=== PATIENT | male | born 1950 | race Caucasian/White ===

== ENCOUNTER 2022-06-13 17:13 | Observation (INO) | payer MEDICARE, OTHER, SELFPAY ==
[2022-06-13] VITALS (13 sets, daily range): BP systolic 102–160; BP diastolic 62–100; PULSE 59–98; RESP 11–26; TEMP 36.2–36.9; O2SAT 91–100; BMI 31.6
--- NOTE | 2022-06-13 17:44 | DI.RAD.S_ITS ---
PROCEDURE: XR FINGER LT MIN 2V INDICATIONS: Distal amputation left index finger TECHNIQUE: AP hand, 2 views of the index finger(s) acquired. COMPARISON: None. FINDINGS: Bones: Prior amputation of the 3rd digit at the level of the proximal aspect of the proximal phalanx. Acute comminuted fracture of the 2nd digit distal phalanx with associated soft tissue injury. A fragment or fragments of the distal phalanx/tuft may be absent. No definite extension of the fracture plane to the DIP joint is identified but this is difficult to exclude. Soft tissues: No suspicious soft tissue calcifications. IMPRESSION: Acute comminuted fracture of the 2nd digit distal phalanx involving the tuft. Dictated by: Zack Wright M.D. on 06/13/2022 at 20:06 Approved by: Zack Wright M.D. on 06/13/2022 at 20:09
[2022-06-13] MEDS: TET,DIPH,PERTUSS(ACELL),VAC/PF 0.5 ML SYRINGE IM (17:57)
[2022-06-13] MEDS: HYDROMORPHONE 0.5 MG INJ IV ×2 (18:05→18:46)
[2022-06-13] MEDS: CEFAZOLIN VIAL 2 GM in SODIUM CHLORIDE 0.9% 100 ML IV (18:10)
--- NOTE | 2022-06-13 18:11 | ED.GENADULT ---
HPI - General Adult General Chief complaint: Extremity Injury, Upper Stated complaint: cut/smashed left hand/finger Time Seen by Provider: 06/13/22 17:44 History of Present Illness HPI narrative: 71-year-old gentleman who rarely sees physicians has no significant medical history on no medications presents approximately 2 hours after injuring his left index finger with a band saw. Was in significant pain and there is a moderate amount of bleeding initially that has since been controlled. The DIP joint is fully exposed and the distal phalanx has been significantly injured with the band soft. There is a long laceration on the radial side that starts at approximately the 1st PIP joint and wraps around the tip of the finger through the pad. The pad does still seem to be moderate a vascularized. He has no allergies, last meal was at noon. He has no recent complaints of fever, cough, chills, vomiting, abdominal pain, chest pain, palpitations. With initial presentation and self described pain at 9/10 he was mildly diaphoretic that has improved after appropriate pain control. Related Data Previous Rx's Medication Instructions Recorded cephalexin 500 mg capsule 500 mg PO QID #40 caps 06/13/22 oxycodone-acetaminophen 5 mg-325 1 tab PO Q6H PRN pain #30 tabs 06/13/22 mg tablet Allergies Allergy/AdvReac Type Severity Reaction Status Date / Time INGREDIENT: NKDA - NO KNOWN Allergy Unknown Uncoded 01/05/18 12:12 DRUG ALLERGIES Review of Systems Review of Systems Narrative: Remainder of complete review of systems is otherwise unremarkable except for that included in the HPI. Patient History Social History household members: spouse Exam Initial Vital Signs Initial Vital Signs: Vital Signs Temperature 98.4 F 06/13/22 17:43 Pulse Rate 67 06/13/22 17:43 Respiratory Rate 18 06/13/22 17:43 Blood Pressure 136/100 H 06/13/22 17:43 Pulse Oximetry 99 06/13/22 17:43 Oxygen Delivery Method 06/13/22 17:43 General: Alert appropriate in no acute distress Respiratory: Able to speak in full sentences, no obvious respiratory distress Skin: No obvious rashes, warm and dry Neurologic: Grossly intact no obvious asymmetries or abnormalities Psych: appropriate insight and affect, cooperative Extremity: Left hand is examined. 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 The index finger has an exposed the IP joint, laceration on the radial aspect up the length of the finger and wrapping through the pad of the finger. Shards of the distal phalanx are available in the soft tissue. Bleeding has been controlled. He is able to flex the finger slightly. Course Orders Ordered: Discontinued Medications Albuterol (Albuterol 2.5 Mg/3 Ml Neb (Adult)) 2.5 mg INH NOW PRN PRN Reason: Coughing, Wheezing, Dyspnea Benzocaine (Benzocaine/Menthol 1 Adelita Pkt) 1 each PO PRN PRN PRN Reason: Sore Throat Bupivacaine HCl (Bupivacaine 0.25% (Pf) Vial) 30 ml INJ NOW ONE Stop: 06/13/22 21:00 Last Admin: 06/13/22 21:01 Dose: 7 ml Documented By: RONALD Cefazolin Sodium (Cephalexin 250 Mg Prepack) 1 bottle MISC SEEINSTR ONE Stop: 06/13/22 21:07 Diphtheria/Tetanus/Acell Pertussis (Tet,Diph,Pertuss(Acell),Vac/Pf 0.5 Ml Syringe) 0.5 ml IM .ONCE ONE Stop: 06/13/22 17:45 Last Admin: 06/13/22 17:57 Dose: 0.5 ml Documented By: KAMRON Fentanyl (Fentanyl 100 Mcg/2 Ml Inj) 0 mcg IV Q5M PRN PRN Reason: Pain, Moderate (4-6) Hydromorphone HCl (Hydromorphone 0.5 Mg Inj) 0.5 mg IV NOW ONE Stop: 06/13/22 17:52 Last Admin: 06/13/22 18:05 Dose: 0.5 mg Documented By: KAMRON Hydromorphone HCl (Hydromorphone 0.5 Mg Inj) 0.5 mg IV Q15MIN PRN PRN Reason: Pain, Last Admin: 06/13/22 18:46 Dose: 0.5 mg Documented By: YOLANDA Hydromorphone HCl (Hydromorphone 2 Mg Inj) 0 mg IV Q5MIN PRN PRN Reason: Pain, Mild (1-3) Hydroxyzine HCl (Hydroxyzine 50 Mg/Ml Inj) 50 mg IM NOW PRN PRN Reason: Moderate Pain Cefazolin Sodium 2 gm/ Sodium (Chloride) 100 mls @ 200 mls/hr IV NOW ONE Stop: 06/13/22 18:14 Last Infusion: 06/13/22 18:44 Dose: 0 mls/hr Documented By: Admin: 06/13/22 18:10 Dose: 200 mls/hr Documented By: KAMRON Sodium Chloride (Normal Saline 0.9%) 1,000 mls @ 150 mls/hr IV CONT TAYLOR Last Admin: 06/13/22 19:01 Dose: 150 mls/hr Documented By: YOLANDA Lactated Ringer's (Lactated Ringers) 1,000 mls @ 120 mls/hr IV CONT TAYLOR Last Infusion: 06/13/22 21:31 Dose: 0 mls/hr Documented By: Admin: 06/13/22 20:03 Dose: 120 mls/hr Documented By: NEREIDA Lorazepam (Lorazepam 2 Mg/Ml Inj) 0.5 mg IV NOW PRN PRN Reason: Anxiety Meperidine HCl (Meperidine 50 Mg/Ml Inj) 25 mg IV PACUNOW PRN PRN Reason: Moderate pain or shivering Metoclopramide HCl (Metoclopramide 10 Mg/2 Ml Inj) 10 mg IV NOW PRN PRN Reason: Nausea And Vomiting Ondansetron HCl (Ondansetron 4 Mg/2 Ml Inj) 4 mg IV NOW PRN PRN Reason: Nausea And Vomiting Oxycodone HCl (Oxycodone Ir 5 Mg Tablet) 5 mg PO PACUNOW PRN PRN Reason: Mild or moderate pain Oxycodone/Acetaminophen (Oxycodone/Apap 5/325 Prepack) 1 bottle MISC SEEINSTR ONE Stop: 06/13/22 18:52 Last Admin: 06/13/22 19:01 Dose: 1 bottle Documented By: YOLANDA Vital Signs Vital signs: Vital Signs - 8 hr 06/13/22 17:43 Temperature 98.4 F Pulse Rate 67 Respiratory Rate 18 Blood Pressure 136/100 H Pulse Oximetry 99 Oxygen Delivery Method Room Air Medical Decision Making Lab Data Result diagrams: 06/13/22 18:05 06/13/22 18:05 Labs: Lab Results 06/13/22 06/13/22 06/13/22 Range/Units 18:05 18:05 18:50 WBC 9.5 (4.5-11.0) X10^3/uL RBC 5.07 (4.5-5.9) X10^6/uL Hgb 14.8 (13.5-17.5) g/dL Hct 43.5 (41-53) % MCV 85.9 (80-100) fL MCH 29.3 (26-34) PG MCHC 34.1 (30-36) % RDW 15.5 H (11.6-14.8) % Plt Count 261 (150-400) X10^3/uL Neut % (Auto) 67.7 (50-75) % Lymph % (Auto) 21.9 L (25-40) % [place] % (Auto) 6.2 (3-14) % Eos % (Auto) 3.0 (2-4) % Baso % (Auto) 1.2 (0-2) % Neut # (Auto) 6400 (0360-8722) /uL Lymph # (Auto) 2100 (7277-9536) /uL [place] # (Auto) 600 (0-900) /uL Eos # (Auto) 300 (0-450) /uL Baso # (Auto) 100 (0-100) /uL Sodium 140 (137-145) mmol/L Potassium 4.2 (3.4-5.1) mmol/L Chloride 105 (98-107) mmol/L Carbon Dioxide 24 (22-32) mmol/L BUN 16 (9-20) mg/dL Creatinine 0.95 (0.66-1.25) mg/dL Estimated GFR > 60 (>60) mL/min BUN/Creatinine Ratio 16.8 (6-22) Glucose 107 (80-110) mg/dL Calcium 9.4 (8.4-10.2) mg/dL SARS-CoV-2 (PCR) Negative (Negative) Imaging Data X-ray finger: Radiologist's Impression: INDINGS:? ? Bones:? Prior amputation of the 3rd digit at the level of the proximal aspect of the proximal phalanx.? Acute comminuted fracture of the 2nd digit distal phalanx with associated soft tissue injury.? A fragment or fragments of the distal phalanx/tuft may be absent.? No definite extension of the fracture plane to the DIP joint is identified but this is difficult to exclude. ? Soft tissues:? No suspicious soft tissue calcifications.? ? IMPRESSION:? Acute comminuted fracture of the 2nd digit distal phalanx involving the tuft. ? ? Dictated by: Zack Wright M.D. on 06/13/2022 at 20:06 ? ? MDM Narrative Medical decision making narrative: 6:48pm Dr Islas. Will look at images Kefzol, tetanus and pain medication have all been addressed. 71-year-old gentleman with a acute injury to the left index distal phalanx secondary to band saw injury. Wound is significant enough that surgical revision is appropriate. Dr. sIlas will take the patient to the operating room later this evening Discharge Plan Departure Patient Disposition: Admitted to Surgery Clinical Impression: Finger amputation, traumatic Qualifiers: Encounter type: initial encounter Qualified Code(s): S68.119A - Complete traumatic metacarpophalangeal amputation of unspecified finger, initial encounter Admit Date/Time: 06/13/22 19:31 Admit Provider: Itzel Islas
[2022-06-13 18:19] LABS: Add Manual Diff / Slide Review NO; Basophils Absolute Auto 100 /uL (0-100); Basophils Percent Auto 1.2 % (0-2); Eosinophils Absolute Auto 300 /uL (0-450); Hematocrit 43.5 % (41-53); Hemoglobin 14.8 g/dL (13.5-17.5); Lymphocytes Absolute Auto 2100 /uL (1100-4500); Lymphocytes Percent Auto 21.9 % (25-40); Mean Corpuscular HGB Conc 34.1 % (30-36); Mean Corpuscular Hemoglobin 29.3 PG (26-34); Mean Corpuscular Volume 85.9 fL (80-100); Monocytes Absolute Auto 600 /uL (0-900); Monocytes Percent Auto 6.2 % (3-14); Neutrophils Absolute Auto 6400 /uL (1500-7000); Neutrophils Percent Auto 67.7 % (50-75); Platelet Count 261 X10^3/uL (150-400); Red Blood Cell Count 5.07 X10^6/uL (4.5-5.9); Red Cell Distribution Width 15.5 % (11.6-14.8); White Blood Cell Count 9.5 X10^3/uL (4.5-11.0)
[2022-06-13 18:26] LABS: BUN Creatinine Ratio 16.8 (6-22); Blood Urea Nitrogen 16 mg/dL (9-20); Calcium 9.4 mg/dL (8.4-10.2); Carbon Dioxide 24 mmol/L (22-32); Chloride 105 mmol/L (98-107); Estimated Glomerular Filt Rate > 60 mL/min (>60); Glucose 107 mg/dL (80-110); HEMOLYSIS 24 (0-50); Potassium 4.2 mmol/L (3.4-5.1); Sodium 140 mmol/L (137-145)
[2022-06-13] MEDS: SODIUM CHLORIDE 0.9% 1,000 ML 150 ML IV (19:01)
[2022-06-13] MEDS: OXYCODONE/APAP 5/325 PREPACK 1 BOTTLE MISC (19:01)
--- NOTE | 2022-06-13 19:02 | PC.NURSE ---
prepack for pain meds given to , additional rx to [facility] as well. *see mar*
[2022-06-13 19:24] LABS: COVID19 -Nasal RAPID Negative (Negative)
--- NOTE | 2022-06-13 19:48 | PM.HP.1 ---
History of Present Illness History of Present Illness Date Patient Seen: 06/13/22 Time Patient Seen: 19:48 Date of Onset of Symptoms: 06/13/22 Chief complaint: cut/smashed left hand/finger Narrative: Mr. 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 He sustained partial amputation to the distal phalanx of his finger along with soft tissue. He was seen in ED and received antibiotics. Due to the severity and complexity of his injury, orthopedic service was consulted for additional management. After discussing with patient recommendation for surgical treatment along with risks and benefits, patient understands and elected to proceed with emergent I&D and completion of amputation of his left index finger. Patient History Family & Social History Safety & Behavioral: Feels Safe in Current Yes Environment Been Physically Hurt or No Threatened By a Person Meds Home Medications and Allergies Home Medications Medication Instructions Recorded Confirmed Type oxycodone-acetaminophen 5 mg-325 1 tab PO Q6H PRN pain #30 tabs 06/13/22 Rx mg tablet Allergies Allergy/AdvReac Type Severity Reaction Status Date / Time INGREDIENT: NKDA - NO KNOWN Allergy Unknown Uncoded 01/05/18 12:12 DRUG ALLERGIES Review of Systems Review of Systems ROS: Yes All systems reviewed with the patient and are negative except as otherwise documented Exam Vital Signs (past 8 hours): - 06/13/22 17:43 06/13/22 18:32 06/13/22 18:26 Temperature 98.4 F Pulse Rate 67 74 72 Respiratory Rate 18 22 18 Blood Pressure 136/100 H 107/67 Pulse Oximetry 99 93 97 Oxygen Delivery Method Room Air Room Air 06/13/22 18:30 06/13/22 18:30 06/13/22 19:00 Temperature Pulse Rate 78 Respiratory Rate 18 Blood Pressure 107/67 113/72 Pulse Oximetry 94 Oxygen Delivery Method 06/13/22 19:00 06/13/22 19:30 06/13/22 19:30 Temperature Pulse Rate 90 89 Respiratory Rate Blood Pressure 105/68 Pulse Oximetry 91 94 Oxygen Delivery Method Oxygen Delivery Method Room Air Extrem Other: left hand index finger with traumatic tissue loss, there is exposed bone, tendon, and joint to the finger. THere is mild venous bleeding w/o active arterial bleeding. Objective Labs Result Diagrams: 06/13/22 18:05 06/13/22 18:05 Labs: Laboratory Results - last 24 hr 06/13/22 06/13/22 06/13/22 18:05 18:05 18:50 WBC 9.5 RBC 5.07 Hgb 14.8 Hct 43.5 MCV 85.9 MCH 29.3 MCHC 34.1 RDW 15.5 H Plt Count 261 Neut % (Auto) 67.7 Lymph % (Auto) 21.9 L [place] % (Auto) 6.2 Eos % (Auto) 3.0 Baso % (Auto) 1.2 Neut # (Auto) 6400 Lymph # (Auto) 2100 [place] # (Auto) 600 Eos # (Auto) 300 Baso # (Auto) 100 Sodium 140 Potassium 4.2 Chloride 105 Carbon Dioxide 24 BUN 16 Creatinine 0.95 Estimated GFR > 60 BUN/Creatinine Ratio 16.8 Glucose 107 Calcium 9.4 SARS-CoV-2 (PCR) Negative Assessment & Plan Assessment & Plan narrative: Patient with traumatic amputation to his left index finger with near complete loss of distal phalax and open fracture of the distal phalanx with exposed joint, bone, and tendon. Risks of surgery was discussed, which includes but not limited to bleeding, infection, need for additional surgery, pain, loss of finger function. Patient understands and would like to proceed with surgery. I scheduled him for left index finger bone and soft tissue I&D, completion of amputation and wound closure. Time Spent With Patient Critical Care time: I spent a total of [] minutes of critical care time on this patient's care today; this time is exclusive of procedural time.
--- NOTE | 2022-06-13 19:56 | PM.OP.1 ---
Operative Date/Time/Diagnoses Date of procedure: 06/13/22 Time of procedure: 20:00 Pre-op diagnosis: 1. left index finger traumatic amputation with open fracture and joint to the finger Post-op diagnosis: same Procedure & Clinicians Procedure: 1. Left index finger irrigation and debridement of skin, muscle and bone 2. Completion of amputation at the distal interphalageal joint 3. Closure of traumatic wound Same procedure as scheduled: Yes Indications: Mr. Ballard was seen in the ED after presenting after a fan-belt injury causing traumatic partial amputation to his left index finger. Risks and benefits of surgical treatment was discussed, patient is taken to the OR emergently for I&D and completion of ampuation with wound closure. Surgeon: Itzel Islas Click Yes if Unassisted: Yes Anesthesia Type: General Operative Notes Closure Type: primary Specimen(s): none sent Estimated Blood Loss (mL): 1 Procedure in detail: After informed consent was obtained and placed in the chart, patient's surgical site was marked. Patient was taken to the operating room and placed in a supine position. A tourniquet was placed on patient's left upper arm. Arm table was attached to the operating bed patient's left arm was placed onto the arm table. Patient's left hand was prepped and draped in the sterile fashion from the fingertips all the way to his upper arm. Time-out was performed and this time. The wound was inspected. There is both a dorsal based traumatic wound and an ulnar aspect avulsion/laceration along the side of the finger extending from the tip to proximal to the PIP joint. [place] was used to debride the distal phalanx until the DIP joint was exposed. Cartilage as well as bone fragments was removed from the joint along with any unhealthy appearing soft tissue. This skin edge was trimmed using a scalpel until healthy appearing skin edge was exposed on all traumatic edges of the skin. Additional bone was debrided until the skin was able to be closed over the distal portion of the finger tip. After the debridement was completed the wound was irrigated copiously with sterile normal saline. 3-0 nylon suture was used to close the skin edges. Complete closure with no exposed bone tendon or joint was able to be accomplished after the closure was completed. Patient's lateral aspect traumatic wound was also closed with 3-0 nylon suture in running fashion. Aluminum splint was placed after sterile dressing was placed on patient's finger however after the closure was completed. Complications: none Post-operative Condition: stable Disposition: PACU Plan for aftercare: Discharge to home
[2022-06-13] MEDS: LACTATED RINGERS 1,000 ML 120 ML IV (20:03)
--- NOTE | 2022-06-13 20:51 | SUR.OPER ---
Supine on padded OR bed, head on pillow, right arm secured on padded arm board at <90 degrees abduction, legs uncrossed, safety belt at thigh, tape over blanket over lower legs. Operative arm out at <90 degrees abduction on padded arm table.
[2022-06-13] MEDS: BUPIVACAINE 0.25% (PF) VIAL 30 ML INJ (21:01)
== END 2022-06-13 22:01 | disposition home or self-care (01) ==
LOC: ED 19:29 → AC 19:31
PROVIDERS: Emergency Medicine; Admitting Provider Orthopaedic Surgery Orthopaedic Surgery of the Spine; Emergency Provider Emergency Medicine; Referring Provider Emergency Medicine; Visit Provider Orthopaedic Surgery Orthopaedic Surgery of the Spine
PROC: (CPT 26951; principal; 2022-06-13 20:15)
DX: S68.621A Partial traumatic transphalangeal amputation of left index finger, initial encounter (principal); W31.2XXA Contact with powered woodworking and forming machines, initial encounter; Z20.822 Contact with and (suspected) exposure to COVID-19
CPT/HCPCS: 26951; 01810; 36415; 73140; 80048; 85025; 87635; 90471; 96365; 96375; 96376; 99284; C9803; G0378; 90715; J0690; J1100; J1170; J2250; J2405; J2704; J2765; J3010